=== PATIENT | female | born 1970 | race African-American/Black ===

== ENCOUNTER 2018-09-27 22:34 | Emergency (ER) | payer OTHER ==
[~2018-09-27] VITALS: Ht 177.8 cm; Wt 113.4 kg
[2018-09-27 23:11] VITALS: BP 139/82
--- NOTE | 2018-09-27 23:15 | NUR ---
ED Nurse Note: Patient walked in to ER c/o sore throat, hedache. AAO x 4, VSS at this time, skin is dry, intact, warm to touch.
[2018-09-27] MEDS ORDERED: PROMETHAZINE-C118 M1 ORAL (23:18)
[2018-09-27] MEDS ORDERED: AMOXICILLIN500 MG ORAL (23:18)
[2018-09-27] MEDS ORDERED: IBUPROFEN600 MG ORAL (23:18)
[2018-09-27 23:25] VITALS: BP 139/82
--- NOTE | 2018-09-27 23:26 | NUR ---
ED Nurse Note: Pt cleared by health care Provider for discharge. DC instructions/prescription was given and explained to pt and verbalized understanding of teachings. All medical deviecs such as ID band removed. Pt is AAO x4, ambulatory and left with all personal belongings.
--- NOTE | 2018-09-28 06:33 | Emergency Room Report ---
History of Present Illness General Chief Complaint: Flu Like Symptoms Source: Patient Present Illness HPI 47-year-old female presents ED for evaluation. Complaining of sore throat and cough for the last 2 weeks. Pain is throbbing, 7 out of 10, nonradiating. Denies fevers or chills. States that she is tried [id number] medications without relief. States that her daughter was sick initially. Denies recent travel. No other aggravating relieving factors. Denies any other associated symptoms Allergies: Coded Allergies: No Known Allergies (Unverified , 09/27/18) Patient History Past Medical History: HTN Past Surgical History: none Pertinent Family History: none Social History: Denies: smoking, alcohol use, drug use Last Menstrual Period: Now Now: No Immunizations: UTD Reviewed Nursing Documentation: PMH: Agreed; PSxH: Agreed Nursing Documentation-PMH Hx Hypertension: Yes Review of Systems All Other Systems: negative except mentioned in HPI Physical Exam Vital Signs Date Time Temp Pulse Resp B/P (MAP) Pulse Ox O2 Delivery O2 Flow Rate FiO2 09/27/18 23:01 98.1 50 19 139/82 (101) 95 Room Air Sp02 EP Interpretation: reviewed, normal General Appearance: no apparent distress, alert, GCS 15, non-toxic Head: normocephalic, atraumatic Eyes: bilateral eye normal inspection, bilateral eye PERRL ENT: hearing grossly normal, no angioedema, normal voice, TMs + canals normal, pharyngeal erythema Neck: full range of motion, supple/symm/no masses Respiratory: chest non-tender, lungs clear, normal breath sounds, speaking full sentences Cardiovascular #1: regular rate, rhythm, no edema Cardiovascular #2: 2+ carotid (R), 2+ carotid (L), 2+ radial (R), 2+ radial (L) , 2+ dorsalis pedis (R), 2+ dorsalis pedis (L) Gastrointestinal: normal bowel sounds, non tender, soft, non-distended, no guarding, no rebound Rectal: deferred Genitourinary: normal inspection, no CVA tenderness Musculoskeletal: back normal, gait/station normal, normal range of motion, non- tender Neurologic: alert, oriented x3, responsive, motor strength/tone normal, sensory intact, speech normal Psychiatric: judgement/insight normal, memory normal, mood/affect normal, no suicidal/homicidal ideation Reflexes: 3+ bicep (R), 3+ bicep (L), 3+ tricep (R), 3+ tricep (L), 3+ knee (R) , 3+ knee (L) Skin: normal color, no rash, warm/dry, well hydrated Lymphatic: no adenopathy Medical Decision Making Diagnostic Impression: Primary Impression: Atypical pneumonia ER Course Hospital Course 47-year-old female presents ED complaining of sore throat and cough x2.5 weeks Differential diagnoses include: URI, pharyngitis, otitis media, asthma Clinical course Patient placed on stretcher. After initial history, physical exam reveals a female in no acute distress. Bilateral TM unremarkable. minimal pharyngeal erythema. No tonsillar exudates. No lymphadenopathy. lungs clear. abdomen soft. Presentation consistent with atypical pneumonia. we will discharge with antibiotics Diagnosis - atypical pneumonia Stable and discharged home with Rx amoxicillin, promethazine/codeine. Instructed to followup with PMD. Return to ED if symptoms recur or worsen Last Vital Signs Date Time Temp Pulse Resp B/P (MAP) Pulse Ox O2 Delivery O2 Flow Rate FiO2 09/27/18 23:25 98.1 19 139/82 95 Room Air 09/27/18 23:11 50 Disposition: HOME, SELF-CARE Condition: Stable Scripts Ibuprofen* (MOTRIN*) 600 Mg Tablet 600 MG ORAL Q8H PRN for For Pain, #30 TAB 0 Refills Prov: Willian Medina MD 09/27/18 Codeine/Promethazine Hcl* (PROMETHAZINE-CODEINE SYRUP*) 118 Ml Syrup 5 ML ORAL Q6H PRN for For Cough, #118 ML 0 Refills Prov: Willian Medina MD 09/27/18 Amoxicillin* (AMOXIL*) 500 Mg Capsule 500 MG ORAL THREE TIMES A DAY, #21 CAP Prov: Willian Medina MD 09/27/18 Referrals: [facility] (PCP) [facility] Patient Instructions: Community-Acquired Pneumonia, Adult, [id number] Willian Medina MD Sep 28, 2018 06:33
== END 2018-09-27 23:30 | disposition home or self-care (01) ==
LOC: EMR 23:30
DX: J18.9 Pneumonia, unspecified organism (principal); I10 Essential (primary) hypertension
CPT/HCPCS: 99282

== ENCOUNTER 2018-10-24 12:55 | Emergency (ER) | payer OTHER ==
[~2018-10-24] VITALS: Ht 177.8 cm; Wt 117.9 kg
[~2018-10-24 12:55] MED LIST: AMOXICILLIN500 MG ORAL; IBUPROFEN600 MG ORAL; PROMETHAZINE-C118 M1 ORAL
--- NOTE | 2018-10-24 13:10 | NUR ---
ED Nurse Note: Patient walked in c/o burning pain in bilateral eyes with redness, tearing and blurry vision x 3 days
--- NOTE | 2018-10-24 13:35 | Emergency Room Report ---
History of Present Illness General Chief Complaint: Eye Problems Source: Patient Present Illness HPI 48-year-old female presents to the emergency department complaining of 10 out of 10 severity burning pain to both eyes with increased lacrimation, erythema, lid swelling and runny nose x2 days. Patient also reports the first day she was doing a lot of sneezing. Patient denies globe pain she reports some relief with eyedrops but her symptoms eventually returned. Patient reports having some discharge upon awakening. Patient denies visual changes she denies contact lens use. Reports photophobia. Denies floaters, flashing lights, or diplopia/blurry vision. Allergies: Coded Allergies: No Known Allergies (Unverified , 09/27/18) Patient History Past Medical History: see triage record Past Surgical History: none Pertinent Family History: none Last Menstrual Period: 2 weeks ago Reviewed Nursing Documentation: PMH: Agreed; PSxH: Agreed Nursing Documentation-PMH Past Medical History: No History, Except For Hx Hypertension: Yes Review of Systems All Other Systems: negative except mentioned in HPI Physical Exam Vital Signs Date Time Temp Pulse Resp B/P (MAP) Pulse Ox O2 Delivery O2 Flow Rate FiO2 10/24/18 13:04 98.4 67 18 191/100 (130) 95 Room Air Sp02 EP Interpretation: reviewed, normal General Appearance: no apparent distress, alert, GCS 15, non-toxic Head: normocephalic, atraumatic Eyes: bilateral eye photophobia, bilateral eye visual acuity, bilateral eye other - conjunctival injection, mild swelling of the upper lids bilaterally, and mild on the lower lateral left eyelid. no obvious stye or lesions. no fb on lid flip. ENT: hearing grossly normal, normal voice, nasal congestion - clear rhinorrhea , moderate bilaterally Neck: full range of motion Respiratory: lungs clear, normal breath sounds, speaking full sentences Cardiovascular #1: regular rate, rhythm, no edema Musculoskeletal: back normal, gait/station normal, normal range of motion, non- tender Neurologic: alert, oriented x3, responsive, motor strength/tone normal, sensory intact, speech normal, grossly normal Psychiatric: judgement/insight normal Lymphatic: no adenopathy Medical Decision Making PA Attestation Dr. Lui is my supervising Physician whom patient management has been discussed with. Diagnostic Impression: Primary Impression: Bacterial conjunctivitis of both eyes Additional Impression: Acute allergic rhinitis ER Course 48-year-old female presents to the emergency department complaining of 10 out of 10 severity burning pain to both eyes with increased lacrimation, erythema, lid swelling and runny nose x2 days. Patient also reports the first day she was doing a lot of sneezing. Patient denies globe pain she reports some relief with eyedrops but her symptoms eventually returned. Patient reports having some discharge upon awakening. Patient denies visual changes she denies contact lens use. Reports photophobia. Denies floaters, flashing lights, or diplopia/blurry vision. Denies fb sensation, chemical splash, new make-up/eye products, or trauma to the eyes. Ddx considered but are not limited to: corneal abrasion, acute glaucoma, globe rupture, FB, Corneal Ulcer, conjunctivitis. Iridis Vital signs: are WNL, pt. is afebrile H&PE are most consistent with: corneal abrasion ORDERS: -Tetracaine and Fluorescein Stain of the [ ] eye: -Increase fluorescein uptake in a linear fashion in the [ ] position of the [ ] eye, there is no involvement of the iris or pupil. Negative Angelica sign. Pt. had positive relief of pain with tetracaine drops. there was negative evidence of Fb, deep ulcer, or rupture. ED INTERVENTIONS: none at this time. DISCHARGE: At this time pt. is stable for d/c to home. Will provide printed patient care instructions, and any necessary prescriptions. Care plan and follow up instructions have been discussed with the patient prior to discharge. . Last Vital Signs Date Time Temp Pulse Resp B/P (MAP) Pulse Ox O2 Delivery O2 Flow Rate FiO2 10/24/18 13:04 98.4 67 18 191/100 (130) 95 Room Air Disposition: HOME, SELF-CARE Condition: Stable Scripts Cetirizine Hcl* (ZYRTEC*) 10 Mg Tablet 10 MG ORAL DAILY, #30 TAB 0 Refills Prov: Jocelyn Cai 10/24/18 Ofloxacin (OCUFLOX) 5 Ml Drops 1 DROP OP TID for 5 Days, #5 ML Prov: Jocelyn Cai 10/24/18 Olopatadine Hcl (PATADAY) 2.5 Ml Drops 1 DROP OP DAILY, #2.5 ML Prov: Jocelyn Cai 10/24/18 Referrals: [facility] (PCP) Patient Instructions: Bacterial Conjunctivitis, [id number] Additional Instructions: Take medications as directed. Follow up with a It Support Specialist in 48 hours, even if your symptoms have resolved. --Please review list of primary care clinics, if you do not already have a primary care provider Return sooner to ED if new symptoms occur, or current symptoms become worse. - Please note that this Emergency Department Report was dictated using [employer] director technology software, occasionally this can lead to erroneous entry secondary to interpretation by the dictation equipment. Jocelyn Cai Oct 24, 2018 13:35
[2018-10-24] MEDS ORDERED: PATADAY2.5 ML OP (13:39)
[2018-10-24] MEDS ORDERED: ZYRTEC10 MG ORAL (13:39)
[2018-10-24] MEDS ORDERED: OCUFLOX5 ML OP (13:39)
[2018-10-24 13:48] VITALS: BP 182/98
[2018-10-24 13:50] VITALS: BP 137/81
--- NOTE | 2018-10-24 13:50 | NUR ---
ER DISCHARGE NOTE: Patient is cleared to be discharged per CARA MORALES, pt is aox4, on room air, with stable vital signs. pt was given dc and prescription instructions, pt was able to verbalize understanding, pt id band removed without complications. BP RECHECKED 137/81 pt is able to ambulate with steady gait. pt took all belongings.
== END 2018-10-24 13:55 | disposition home or self-care (01) ==
LOC: EMR 13:12
DX: H10.9 Unspecified conjunctivitis (principal); J30.9 Allergic rhinitis, unspecified; I10 Essential (primary) hypertension
CPT/HCPCS: 99282